=== PATIENT | female | born 1965 | race Caucasian/White ===

== ENCOUNTER 2020-06-27 17:22 | Outpatient (CLI) | payer BC, SELFPAY ==
--- NOTE | ~2020-06-27 | MM_ITS ---
EXAMINATION: MM screening [place] [facility] w dorothy HISTORY: Screening mammogram TECHNIQUE: Craniocaudal and mediolateral oblique 3-D tomosynthesis images were obtained and synthetic 2-D images were generated. CAD analysis was submitted and interpreted. COMPARISON: 06/16/2019 diagnostic right digital mammogram and limited right breast ultrasound 05/29/2019, 04/04/2018 bilateral digital screening mammogram examinations BREAST PARENCHYMAL COMPOSITION: There are scattered areas of fibroglandular density. FINDINGS: History of bilateral breast reduction surgery, with an area of calcified fat necrosis on ea ch side. There is no evidence of suspicious mass, calcification, or architectural distortion to sugge st malignancy in either breast. There has been no suspicious interval change. IMPRESSION: 1. No mammographic evidence of malignancy. 2. Recommend routine screening mammography in one year. BI-RADS Category 2: Benign finding(s). Reviewed, dictated and finalized at location A.
== END 2020-06-27 17:23 | disposition home or self-care (01) ==
PROVIDERS: PCP Family Medicine; Visit Provider Family Medicine
DX: Z12.31 Encounter for screening mammogram for malignant neoplasm of breast (principal)
CPT/HCPCS: 77063; 77067

== ENCOUNTER → 2021-03-25 01:30 | Outpatient (CLI) | payer BC, SELFPAY ==
[2021-03-26 15:30] LABS: SARS-CoV-2 RNA PCR Negative
== END ==
PROVIDERS: PCP Family Medicine; Visit Provider Internal Medicine Gastroenterology
DX: Z01.812 Encounter for preprocedural laboratory examination (principal); Z20.822 Contact with and (suspected) exposure to COVID-19
CPT/HCPCS: C9803; U0003; U0005

== ENCOUNTER 2021-03-28 02:01 | Day surgery (SDC) | payer BC, SELFPAY ==
[2021-03-12 13:11] VITALS: BMI 30.6
--- NOTE | 2021-03-28 08:23 | WPDANESEPPF ---
Anes - Initial Pre Proc Eval Procedure: Operation Date: 03/28/21 10:30 Proposed Procedures p Esophagogastroduodenoscopy & Colonoscopy - George Koo MD Date/Time: 03/28/21 08:23 Surgeon: George Koo MD Pre Op Diagnosis: loose stool, dysphagia, GERD Patient Data Age: 56 Gender: F Height: 1.7 m Weight: 88.6 kg Allergies Allergy/AdvReac Type Severity Reaction Status Date / Time clindamycin Allergy Unknown Hives Verified 03/28/21 09:38 codeine Allergy Unknown unknown Verified 03/28/21 09:38 lamotrigine [From Lamictal] Allergy Unknown blistering Verified 03/28/21 09:38 rash Penicillins Allergy Unknown unknown Verified 03/28/21 09:38 Sulfa (Sulfonamide Allergy Unknown unknown Verified 03/28/21 09:38 Antibiotics) Home Medications Medication Instructions Recorded Confirmed Type buspirone 30 mg tablet 30 mg PO BID 08/11/19 03/28/21 History levalbuterol tartrate 45 2 inhalation INHALATION Q6H 08/11/19 03/28/21 History mcg/actuation aerosol inhaler quetiapine 25 mg tablet 25 mg PO BID 08/11/19 03/28/21 History fluoxetine 60 mg tablet 60 mg PO DAILY 08/23/19 03/28/21 History azelastine 205.5 mcg (0.15 %) 1 spray INTRANASAL DAILY #30 ml 07/19/20 03/28/21 Rx nasal spray metformin 500 mg tablet 500 mg PO BID #180 tablet 11/06/20 03/28/21 Rx esomeprazole magnesium 40 mg 40 mg PO DAILY 11/12/20 03/28/21 History capsule,delayed release lisinopril 10 mg tablet 10 mg PO DAILY #90 tablet 12/02/20 03/28/21 Rx lorazepam 1 mg tablet 1 mg PO .COMPLEX PRN #5 tablet 01/15/21 03/28/21 Rx cholestyramine-aspartame 4 gram 4 g PO DAILY #210 g 01/20/21 03/28/21 Rx oral powder famotidine 20 mg tablet 20 mg PO QHS #30 tablet 02/07/21 03/28/21 Rx rosuvastatin 20 mg tablet 20 mg PO DAILY #90 tablet 03/25/21 03/28/21 Rx Patient hx anesthesia problems: none Family hx anesthesia problems: none PMFSH Past Medical History Medical History (Updated 02/07/21 @ 14:02 by SONIYA Granados) Anxiety Diabetes Diarrhea Dysphagia GERD (gastroesophageal reflux disease) HLD (hyperlipidemia) Hypertension Irritable bowel syndrome with diarrhea Obese Family History Family History Mother Family history of hypercholesterolemia Hypertension Family history of malignant neoplasm of breast in first degree relative Grandparent Family history of hypercholesterolemia Hypertension Cerebrovascular accident Father Family history of glaucoma Cerebrovascular accident Sibling Family history of malignant neoplasm of urinary bladder Other Family history of arthritis Family history of malignant neoplasm Social History Social History Smoking status: Never smoker Second hand tobacco smoke exposure: Yes Alcohol intake: never Substance use: never Substance use type: does not use Living arrangements: with family Gender identity (if verbalized by the patient): Female Sexual Orientation (if Verbalized by the Patient): Straight or Heterosexual Anes - Eval Final PreProcedure Day of Procedure 03/28/21 08:23 Patient weight: obese Heart: regular rate and rhythm Lungs: clear to auscultation and normal air movement Airway: Mallampati scale class II Neurological: alert and oriented Last oral intake: >/= 8 hours ASA classification: III Emergent: no Anesthetic plan: proceed Anesthesia type and monitoring: general GIVS Informed Consent: The patient's anesthetic plan and its attendant risks and benefits were discussed with the patient/family/POA. Questions were solicited and answers provided to the satisfaction of the patient/family/POA.
[2021-03-28 09:40] VITALS: BP 146/87; PULSE 82; RESP 18; TEMP 36.4; O2SAT 98; BMI 30.7
[2021-03-28 09:55] LABS: Glucose Point of Care 105 mg/dl (65-105)
[2021-03-28] MEDS: LACTATED RINGERS 1,000 ML 150 ML IV CONT (09:57)
--- NOTE | 2021-03-28 10:23 | WPDGICN ---
Assessment and Plan Assessment and plan (1) Dysphagia: Code(s): R13.10 - Dysphagia, unspecified Status: Acute Assessment and Plan: Patient complains of difficulty swallowing particularly and breads. Plan is for EGD to assess more thoroughly. She gives a history that suggests she may have had a stricture in the past. (2) GERD (gastroesophageal reflux disease): Code(s): K21.9 - Gastro-esophageal reflux disease without esophagitis Status: Acute Assessment and Plan: Patient has been diagnosed with GE reflux in the past. She has been maintained on chronic Nexium. This will be evaluated at the time of endoscopy. Continued anti-reflux measures and PPI therapy are encourage. (3) Irritable bowel syndrome with diarrhea: Code(s): K58.0 - Irritable bowel syndrome with diarrhea Status: Acute Assessment and Plan: Patient with long history of IBS and loose stools. Plan to continue Questran as she appears to have some improvement. Adding fiber in fiber supplements may be of some additional benefit. (4) Diarrhea: Code(s): R19.7 - Diarrhea, unspecified Status: Acute Assessment and Plan: Patient continues of loose stools that have become more noticeable over the last 6 months. Adding fiber may add bulk to her symptoms. Irritable bowel syndrome most likely explanation. Colonoscopy will be performed to evaluate for other organic disease. Also for screening purposes. GI Consult Note Consult date/time: 03/28/21 10:23 HPI: Katharina Raymond is a 56 year old female Presents for colonoscopy an EGD. Patient reports difficulty swallowing. She states food particularly bread will hang up in the throat. She states that previously while in [place] she had an endoscopy that showed a pill was caught in her esophagus. She also reports there was inflammation of some start within her stomach. These records are not immediately available for review. Patient in the past was told that she had acid reflux disease and has been maintained on Nexium which she continues to this day. She denies having had heartburn in the past however. Additionally patient has a history of irritable bowel syndrome and diarrhea. She states over the last 6 months her stools have persistently been loose. She denies bowel movements at night. She primarily notices these throughout the day. No specific precipitating or alleviating factors. She has tried Colestid with some improvement of symptoms. Review of Systems Review of Systems: All systems reviewed & are unremarkable except as noted in HPI and below PMFSH Past Medical History Medical History (Updated 02/07/21 @ 14:02 by SONIYA Granados) Anxiety Diabetes Diarrhea Dysphagia GERD (gastroesophageal reflux disease) HLD (hyperlipidemia) Hypertension Irritable bowel syndrome with diarrhea Obese Family History Family History Mother Family history of hypercholesterolemia Hypertension Family history of malignant neoplasm of breast in first degree relative Grandparent Family history of hypercholesterolemia Hypertension Cerebrovascular accident Father Family history of glaucoma Cerebrovascular accident Sibling Family history of malignant neoplasm of urinary bladder Other Family history of arthritis Family history of malignant neoplasm Social History Social History Smoking status: Never smoker Second hand tobacco smoke exposure: Yes Alcohol intake: never Substance use: never Substance use type: does not use Living arrangements: with family Gender identity (if verbalized by the patient): Female Sexual Orientation (if Verbalized by the Patient): Straight or Heterosexual Meds Home Medications and Allergies Home Medications Medication Instructions Recorded Confirmed Type buspirone
[2021-03-28 11:43] VITALS: BP 125/77; PULSE 69; RESP 24; O2SAT 96
[2021-03-28 11:53] VITALS: BP 134/79; PULSE 68; RESP 20; O2SAT 98
[2021-03-28 12:03] VITALS: BP 131/84; PULSE 67; RESP 23; O2SAT 98
== END 2021-03-28 12:15 | disposition home or self-care (01) ==
PROVIDERS: PCP Family Medicine; Visit Provider Internal Medicine Gastroenterology
PROC: 0DJ08ZZ Inspection of Upper Intestinal Tract, Via Natural or Artificial Opening Endoscopic (ICD-10-PCS; CPT 43235; principal; 2021-03-28 10:30)
DX: R19.7 Diarrhea, unspecified (principal); R13.19 Other dysphagia; K31.7 Polyp of stomach and duodenum; K64.8 Other hemorrhoids; K58.0 Irritable bowel syndrome with diarrhea; F41.9 Anxiety disorder, unspecified; E11.9 Type 2 diabetes mellitus without complications; E78.5 Hyperlipidemia, unspecified; E66.9 Obesity, unspecified; Z68.30 Body mass index [BMI] 30.0-30.9, adult; Z79.84 Long term (current) use of oral hypoglycemic drugs
CPT/HCPCS: 45380; 43251; 43450; 82948; 88305; J2001; J2704; J7120

== ENCOUNTER 2021-05-21 15:26 | Emergency (ER) | payer BC, SELFPAY ==
[2021-05-21 15:36] VITALS: BP 126/70; PULSE 72; RESP 16; TEMP 37.1; O2SAT 100
--- NOTE | 2021-05-21 16:00 | ED.EAR ---
HPI - Ear Problem General Chief complaint: Ear Stated complaint: ear pain Source: patient and RN notes reviewed Limitations: no limitations History of Present Illness HPI Narrative: The patient, on several medications including for mood, presents with left ear discomfort. Patient states she has a 1 to 2-day worsening of a least 1/2-month history of intermittent left ear discomfort. No fever, URI?sinusitis, discharge, tinnitus, vertigo, TMJ tenderness, neuralgic pain, tooth ache, recent swimming. Symptoms are mild, not worse with palpation; patient requests refill of prior inhalers for her trip Related Data Home Medications Medication Instructions Recorded Confirmed buspirone 30 mg tablet 30 mg PO BID 08/11/19 05/21/21 levalbuterol tartrate 45 2 inhalation INHALATION Q6H 08/11/19 05/21/21 mcg/actuation aerosol inhaler quetiapine 25 mg tablet 25 mg PO BID 08/11/19 05/21/21 fluoxetine 60 mg tablet 60 mg PO DAILY 08/23/19 05/21/21 esomeprazole magnesium 40 mg 40 mg PO DAILY 11/12/20 05/21/21 capsule,delayed release Allergies Allergy/AdvReac Type Severity Reaction Status Date / Time clindamycin Allergy Unknown Hives Verified 05/21/21 15:43 codeine Allergy Unknown unknown Verified 05/21/21 15:43 lamotrigine [From Lamictal] Allergy Unknown blistering Verified 05/21/21 15:43 rash Penicillins Allergy Unknown unknown Verified 05/21/21 15:43 Sulfa (Sulfonamide Allergy Unknown unknown Verified 05/21/21 15:43 Antibiotics) Review of Systems Review of Systems: General/Constitutional: No weight loss,fever Eyes: N0: Redness,discharge Ears/Nose/Throat: No: Epistaxis,ear discharge Respiratory: Denies: Hemoptysis Gastrointestinal: No Vomiting, Bleeding-rectal Skin: No Lumps, eruption Neurologic: No Focal Weakness,Sz Hematologic: Denies: Petechiae/Purpura Psychiatric: No: Suicida ideationl All Other Systems: Reviewed and Negative [facility] Past Medical History Medical History (Updated 05/21/21 @ 16:04 by Jack Bajwa MD) Anxiety Diabetes Diarrhea Dysphagia GERD (gastroesophageal reflux disease) HLD (hyperlipidemia) Hypertension Irritable bowel syndrome with diarrhea Obese Family History Family History Mother Family history of hypercholesterolemia Hypertension Family history of malignant neoplasm of breast in first degree relative Grandparent Family history of hypercholesterolemia Hypertension Cerebrovascular accident Father Family history of glaucoma Cerebrovascular accident Sibling Family history of malignant neoplasm of urinary bladder Other Family history of arthritis Family history of malignant neoplasm Social History Social History Smoking status: Never smoker Second hand tobacco smoke exposure: Yes Alcohol intake: never Substance use: never Substance use type: does not use Gender identity (if verbalized by the patient): Female Comments At time of signature, agree with nursing past medical, surgical, social and family history. There is no relevant family history pertinent to the presenting complaint Exam Narrative: General Appearance: Well appearing, Conjunctiva clear Ears: Auditory canal normal, TM normal Nose: no rhinorrhea, Mucousal erythema Mouth/Throat: MM moist, Uvula midline, no pharyngeal erythema, Supple, Respiratory: No respiratory distress, Breath sounds equal, Clear to auscultation Cardiovascular: RRR, No JVD Musculoskeletal: Non tender, Normal strength Skin: Warm, Dry Neurological: A&O x3, Normal affect Course Vital Signs Vital signs: Vital Signs Temperature 98.7 F 05/21/21 15:36 Pulse Rate 72 05/21/21 15:36 Respiratory Rate 16 05/21/21 15:36 Blood Pressure 126/70 05/21/21 15:36 Pulse Oximetry 100 05/21/21 15:36 Temperature 98.7 F 05/21/21 15:36 Pulse Rate 72 05/21/21 15:36 Respi
== END 2021-05-21 16:12 | disposition home or self-care (01) ==
PROVIDERS: Emergency Provider Emergency Medicine; PCP Family Medicine
DX: H92.02 Otalgia, left ear (principal); F41.9 Anxiety disorder, unspecified; E11.9 Type 2 diabetes mellitus without complications; K21.9 Gastro-esophageal reflux disease without esophagitis; E78.5 Hyperlipidemia, unspecified; I10 Essential (primary) hypertension; E66.9 Obesity, unspecified; Z68.31 Body mass index [BMI] 31.0-31.9, adult
CPT/HCPCS: 99213; G0463

== ENCOUNTER 2021-06-21 14:41 | Emergency (ER) | payer BC, SELFPAY ==
[2021-06-21 14:51] VITALS: BP 132/70; PULSE 79; RESP 18; TEMP 36.6; O2SAT 100
[2021-06-21 14:53] VITALS: BP 132/70; PULSE 79; RESP 18; TEMP 36.6; O2SAT 100
--- NOTE | 2021-06-21 15:21 | ED.RECABL ---
HPI - Recheck/Abnormal Lab/Rx General Chief Complaint: Recheck/Abnormal Lab/Rx Stated Complaint: Refill on Pain Medicine Time Seen by Provider: 06/21/21 15:21 Source: patient Mode of arrival: ambulatory Limitations: no limitations History of Present Illness HPI narrative: Katharina Raymond is a 56 yo female with GERD, depression, HTN, diabetes, anxiety, high cholesterol, comes to [facility] for refill on pain medication after a fall in [place] on Wednesday where she broke her rib. They gave her pain medication to get home on but she states the pain is unbearable and she is unable to tolerate the level of pain. She is banged up in terms of bruises and abrasions Related Data Home Medications Medication Instructions Recorded Confirmed buspirone 30 mg tablet 30 mg PO BID 08/11/19 06/21/21 quetiapine 25 mg tablet 25 mg PO BID 08/11/19 06/21/21 fluoxetine 60 mg tablet 60 mg PO DAILY 08/23/19 06/21/21 esomeprazole magnesium 40 mg 40 mg PO DAILY 11/12/20 06/21/21 capsule,delayed release albuterol sulfate 2 inh INHALATION DIRECTED 06/21/21 06/21/21 Allergies Allergy/AdvReac Type Severity Reaction Status Date / Time clindamycin Allergy Unknown Hives Verified 06/21/21 14:49 codeine Allergy Unknown unknown Verified 06/21/21 14:49 lamotrigine [From Lamictal] Allergy Unknown blistering Verified 06/21/21 14:49 rash Penicillins Allergy Unknown unknown Verified 06/21/21 14:49 Sulfa (Sulfonamide Allergy Unknown unknown Verified 06/21/21 14:49 Antibiotics) Review of Systems Review of Systems: CONSTITUTIONAL: Denies fever, chills, sweats. Here for pain medication refill EYES: Denies visual changes, redness, discharge. ENT: Denies rhinorrhea, congestion, sore throat, otalgia. CARDIOVASCULAR: Denies chest pain, palpitations, edema. RESPIRATORY: Denies dyspnea, wheezing, cough. Fractured rib GASTROINTESTINAL: Denies abdominal pain, nausea, vomiting, diarrhea. GENITOURINARY: Denies dysuria, hematuria, abnormal discharge SKIN: Denies rash or itching. Has abrasions and bruises all over NEUROLOGIC: Denies numbness, or focal weakness. PSYCHIATRIC: Denies anxiety or depression. PMFSH Past Medical History Medical History Anxiety Diabetes Diarrhea Dysphagia GERD (gastroesophageal reflux disease) HLD (hyperlipidemia) Hypertension Irritable bowel syndrome with diarrhea Obese Family History Family History Mother Family history of hypercholesterolemia Hypertension Family history of malignant neoplasm of breast in first degree relative Grandparent Family history of hypercholesterolemia Hypertension Cerebrovascular accident Father Family history of glaucoma Cerebrovascular accident Sibling Family history of malignant neoplasm of urinary bladder Other Family history of arthritis Family history of malignant neoplasm Social History Social History Smoking status: Never smoker Second hand tobacco smoke exposure: Yes Alcohol intake: never Substance use: never Substance use type: does not use Gender identity (if verbalized by the patient): Female Sexual Orientation (if Verbalized by the Patient): Straight or Heterosexual Comments At time of signature, I agree with nursing past medical, surgical, social and family history. There is no relevant family history pertinent to the presenting complaint. Exam Narrative: GENERAL: This is a well-nourished, well-developed patient, in mild distress. Here for a refill on pain medication HEAD: normocephalic, atraumatic. EYES: Sclera clear/white. Vision is grossly intact. EARS: External ears normal, Hearing grossly intact. NOSE: External nose normal without nasal discharge, nares without redness, no rhinorrhea. THROAT: Mucous membranes moist, NECK: Neck supple, non-tender CARDIOVASCULAR: Regu
== END 2021-06-21 15:40 | disposition home or self-care (01) ==
PROVIDERS: Emergency Provider Nurse Practitioner; PCP Family Medicine
DX: S22.31XD Fracture of one rib, right side, subsequent encounter for fracture with routine healing (principal); Z76.0 Encounter for issue of repeat prescription; I10 Essential (primary) hypertension; E11.9 Type 2 diabetes mellitus without complications; F41.9 Anxiety disorder, unspecified; E78.5 Hyperlipidemia, unspecified; W19.XXXD Unspecified fall, subsequent encounter
CPT/HCPCS: 99213; G0463

== ENCOUNTER 2021-07-11 19:57 | Emergency (ER) | payer BC, SELFPAY ==
--- NOTE | 2021-07-11 20:03 | PC.NURSE ---
in br to obtain ua spec.
[2021-07-11 20:04] VITALS: BP 134/74; PULSE 81; RESP 16; TEMP 36.7; O2SAT 99
--- NOTE | 2021-07-11 20:07 | ED.FEMALEGU ---
HPI - Female Genitourinary General Chief complaint: Urogenital-Female Stated complaint: UTI Time Seen by Provider: 07/11/21 20:21 Source: patient and RN notes reviewed Mode of arrival: ambulatory Limitations: no limitations History of Present Illness HPI Narrative: 56-year-old female presents with concern for urinary tract infection. She reports symptoms started 2 days ago with dysuria, frequency, suprapubic pressure. She reports history of urinary tract infections. She denies nausea, vomiting, fever, back pain, flank pain, hematuria. MD elicited complaint: UTI Related Data Home Medications Medication Instructions Recorded Confirmed buspirone 30 mg tablet 30 mg PO BID 08/11/19 06/21/21 quetiapine 25 mg tablet 25 mg PO BID 08/11/19 06/21/21 fluoxetine 60 mg tablet 60 mg PO DAILY 08/23/19 06/21/21 esomeprazole magnesium 40 mg 40 mg PO DAILY 11/12/20 06/21/21 capsule,delayed release albuterol sulfate 2 inh INHALATION DIRECTED 06/21/21 06/21/21 Allergies Allergy/AdvReac Type Severity Reaction Status Date / Time clindamycin Allergy Unknown Hives Verified 06/21/21 14:49 codeine Allergy Unknown unknown Verified 06/21/21 14:49 lamotrigine [From Lamictal] Allergy Unknown blistering Verified 06/21/21 14:49 rash Penicillins Allergy Unknown unknown Verified 06/21/21 14:49 Sulfa (Sulfonamide Allergy Unknown unknown Verified 06/21/21 14:49 Antibiotics) Review of Systems Review of Systems: CONSTITUTIONAL: Denies malaise, chills, sweats, or fever. CARDIOVASCULAR: Denies chest pain, palpitations, or edema. RESPIRATORY: Denies cough or dyspnea. GASTROINTESTINAL: Denies abdominal pain, nausea, vomiting, diarrhea, bloody, or mucous stools. GENITOURINARY: Reports dysuria, frequency, suprapubic pressure. Denies hematuria. SKIN: Denies vaginal rash or itching. MUSCULOSKELETAL: Denies back pain or myalgia. All systems reviewed & are unremarkable except as noted in HPI and below PMFSH Past Medical History Medical History Anxiety Diabetes Diarrhea Dysphagia GERD (gastroesophageal reflux disease) HLD (hyperlipidemia) Hypertension Irritable bowel syndrome with diarrhea Obese Family History Family History Mother Family history of hypercholesterolemia Hypertension Family history of malignant neoplasm of breast in first degree relative Grandparent Family history of hypercholesterolemia Hypertension Cerebrovascular accident Father Family history of glaucoma Cerebrovascular accident Sibling Family history of malignant neoplasm of urinary bladder Other Family history of arthritis Family history of malignant neoplasm Social History Social History Smoking status: Never smoker Second hand tobacco smoke exposure: Yes Alcohol intake: never Substance use: never Substance use type: does not use Gender identity (if verbalized by the patient): Female Sexual Orientation (if Verbalized by the Patient): Straight or Heterosexual Comments At time of signature, agree with nursing past medical, surgical, social and family history. There is no relevant family history pertinent to the presenting complaint Exam Narrative: GENERAL: Well-appearing, well-nourished, and in no acute distress. HEAD: Normocephalic. EYES: PERRLA, conjunctivae clear. NECK: Supple. No lymphadenopathy CHEST: Clear to auscultation. No respiratory distress. HEART: Regular rate and rhythm. ABDOMEN: Soft, nontender upon palpation, nondistended, normal active bowel sounds, no palpable or pulsatile masses, no guarding. No CVA tenderness SKIN: Warm, dry, no rash. NEURO: Alert and oriented x3. PSYCH: Normal mood and affect Course Course Emergency Course: Patient is aware of diagnosis, understands and agrees to treatment plan. Anticipatory guidance given. Patient agree
== END 2021-07-11 20:33 | disposition home or self-care (01) ==
PROVIDERS: Emergency Provider Nurse Practitioner; PCP Family Medicine
DX: R30.0 Dysuria (principal); R35.0 Frequency of micturition; R10.30 Lower abdominal pain, unspecified; E11.9 Type 2 diabetes mellitus without complications; K21.9 Gastro-esophageal reflux disease without esophagitis; E78.5 Hyperlipidemia, unspecified; I10 Essential (primary) hypertension; E66.9 Obesity, unspecified; F41.9 Anxiety disorder, unspecified
CPT/HCPCS: 81003; 87077; 87086; 87088; 87186; 99213; G0463

== ENCOUNTER 2021-09-05 10:13 | Outpatient (CLI) | payer BC, SELFPAY ==
--- NOTE | ~2021-09-05 | MM_ITS ---
EXAMINATION: MM screening [place] w dorothy HISTORY: Screening mammogram TECHNIQUE: Craniocaudal and mediolateral oblique 3-D tomosynthesis images were obtained and synthetic 2-D images were generated. CAD analysis was submitted and interpreted. COMPARISON: 06/23/2020 bilateral screening mammogram 06/16/2019 diagnostic right mammogram and limited right breast ultrasound 05/29/2019, 04/17/2018 bilateral screening mammogram examinations BREAST PARENCHYMAL COMPOSITION: There are scattered areas of fibroglandular density. FINDINGS: Occasional bilateral benign calcifications There is no evidence of suspicious mass, calcifi cation, or architectural distortion to suggest malignancy in either breast. There has been no suspici ous interval change. IMPRESSION: 1. No mammographic evidence of malignancy. 2. Recommend routine screening mammography in one year. BI-RADS Category 2: Benign finding(s). Reviewed, dictated and finalized at location A. [employer]
== END 2021-09-05 10:14 | disposition home or self-care (01) ==
LOC: ANHIMG 10:15
PROVIDERS: PCP Family Medicine; Visit Provider Family Medicine
DX: Z12.31 Encounter for screening mammogram for malignant neoplasm of breast (principal)
CPT/HCPCS: 77063; 77067

== ENCOUNTER 2021-09-05 18:01 | Emergency (ER) | payer BC, SELFPAY ==
[2021-09-05 18:11] VITALS: BP 150/67; PULSE 72; RESP 16; TEMP 36.7; O2SAT 100
--- NOTE | 2021-09-05 18:17 | ED.FEMALEGU ---
HPI - Female Genitourinary General Chief complaint: Urogenital-Female Stated complaint: UTI Time Seen by Provider: 09/05/21 18:17 Source: patient Limitations: no limitations History of Present Illness HPI Narrative: Katharina Raymond is a 56 yo female with recurrent complaints of uti and PMH of GERD, depression, HTN, diabetes, high cholesterol, [facility] complaint of urinary tract symptoms of dysuria, urinary frequency. She has been seen here multiple times for dysuria and states she has symptoms again for the last few days. Related Data Home Medications Medication Instructions Recorded Confirmed buspirone 30 mg tablet 30 mg PO BID 08/11/19 06/21/21 quetiapine 25 mg tablet 25 mg PO BID 08/11/19 06/21/21 fluoxetine 60 mg tablet 60 mg PO DAILY 08/23/19 06/21/21 esomeprazole magnesium 40 mg 40 mg PO DAILY 11/12/20 06/21/21 capsule,delayed release albuterol sulfate 2 inh INHALATION DIRECTED 06/21/21 06/21/21 Allergies Allergy/AdvReac Type Severity Reaction Status Date / Time clindamycin Allergy Unknown Hives Verified 06/21/21 14:49 codeine Allergy Unknown unknown Verified 06/21/21 14:49 lamotrigine [From Lamictal] Allergy Unknown blistering Verified 06/21/21 14:49 rash Penicillins Allergy Unknown unknown Verified 06/21/21 14:49 Sulfa (Sulfonamide Allergy Unknown unknown Verified 06/21/21 14:49 Antibiotics) Review of Systems Review of Systems: CONSTITUTIONAL: Denies fever, chills, sweats. EYES: Denies visual changes, redness, discharge. ENT: Denies rhinorrhea, congestion, sore throat, otalgia. CARDIOVASCULAR: Denies chest pain, palpitations, edema. RESPIRATORY: Denies dyspnea, wheezing, cough GASTROINTESTINAL: Denies abdominal pain, nausea, vomiting, diarrhea. GENITOURINARY: Has dysuria, hematuria, abnormal discharge SKIN: Denies rash or itching. NEUROLOGIC: Denies numbness, or focal weakness. PSYCHIATRIC: Denies anxiety or depression. [facility] Past Medical History Medical History Anxiety Diabetes Diarrhea Dysphagia GERD (gastroesophageal reflux disease) HLD (hyperlipidemia) Hypertension Irritable bowel syndrome with diarrhea Obese Family History Family History Mother Family history of hypercholesterolemia Hypertension Family history of malignant neoplasm of breast in first degree relative Grandparent Family history of hypercholesterolemia Hypertension Cerebrovascular accident Father Family history of glaucoma Cerebrovascular accident Sibling Family history of malignant neoplasm of urinary bladder Other Family history of arthritis Family history of malignant neoplasm Social History Social History Smoking status: Never smoker Second hand tobacco smoke exposure: Yes Alcohol intake: never Substance use: never Substance use type: does not use Gender identity (if verbalized by the patient): Female Sexual Orientation (if Verbalized by the Patient): Straight or Heterosexual Comments At time of signature, I agree with nursing past medical, surgical, social and family history. There is no relevant family history pertinent to the presenting complaint. Exam Narrative: GENERAL: This is a well-nourished, well-developed patient, in mild distress. HEAD: normocephalic, atraumatic. EYES: PERRL. Sclera clear/white. Vision is grossly intact. EARS: External ears normal, auditory canals clear and without drainage, TMs normal without perforation. Hearing grossly intact. NOSE: External nose normal without nasal discharge, nares without redness, no rhinorrhea. THROAT: Mucous membranes moist, posterior pharynx NECK: Neck supple, non-tender CARDIOVASCULAR: Regular rate and rhythm without murmurs, gallops, or rubs. RESPIRATORY: Clear to auscultation. Breath sounds equal bilaterally. No wheezes, rales, o
== END 2021-09-05 18:49 | disposition home or self-care (01) ==
PROVIDERS: Emergency Provider Nurse Practitioner; PCP Family Medicine
DX: R30.0 Dysuria (principal); E78.5 Hyperlipidemia, unspecified; I10 Essential (primary) hypertension; E11.9 Type 2 diabetes mellitus without complications
CPT/HCPCS: 81003; 87086; 99213; G0463